=== PATIENT | female | born 1950 | race Caucasian/White ===

== ENCOUNTER 2019-07-14 16:18 | Inpatient (IN) | payer OTHER ==
[~2019-07-14] VITALS: Ht 160 cm; Wt 86.9 kg
[~2019-07-14 16:18] MED LIST: ACET500 PO; ACETAMINOPHEN PO; ALLER-TEC PO; AMLO5 PO; ASPI500 PO; Anti-Diarrheal2 MG PO; B-12500 MC1 SL; CALCAVITDA PO; CALCITRATE200 MG PO; Diovan40 MG PO; FAMO20 PO; FERR325 PO; FISH1000 PO; GINKO BILOBA; HAIR SKIN NAIL1 EACH PO; IRON150C PO; MOMENI; Multiple Vitam1 EAC1 PO; OMEPRAZOLE20 MG PO; PHENYLEPHRINE PO; PROBIOTIC1 EAC6 PO; Super B Comple1 EAC2 PO; TELM20 PO; VALS80 PO
--- NOTE | 2019-07-16 09:36 | NUR ---
History, Chart, Medications and Allergies reviewed before start of procedure. Lungs clear T/O to Auscultation. Patient confirms NPO status and agrees with scheduled surgery. Patient reports completing Chlorhexadine shower X2 prior to admission to hospital.
--- NOTE | 2019-07-16 15:31 | NUR ---
TRANSFER TO SURGICAL UNIT PT TO SURGICAL FLOOR FROM OR AT 1400 TODAY. PT A/OX4 WITH VSS ON RA. BULK DRESSING TO LEFT HIP C/D/I WITH POLAR PAC IN PLACE. HENRIQUE'S AND SCD'S IN PLACE. DENIES PAIN. TOLERATING REGULAR DIET. SPOUSE AT BEDSIDE AND CALL LIGHT WITHIN REACH.
--- NOTE | 2019-07-16 15:44 | NUR ---
PATIENT WORKING WITH THERAPY AT THIS TIME
--- NOTE | 2019-07-16 16:35 | NUR ---
SHIFT SUMMARY POD 0 S/P LEFT AUGUSTO. PT A&OX4 WITH VSS. DRESSING TO LEFT HIP C/D/I WITH POLAR PAC IN PLACE. ALSO HAS HENRIQUE'S AND SCD'S IN PLACE BLE. REPORTS PAIN WELL CONTROLLED WITH PO MEDICATION. WORKED WITH THERAPY THIS AFTERNOON, AMBULATED IN HALLWAY. TOLERATING RENAL/LACTOSE FREE DIET. DENIES ANY N/V. CURRENTLY IN CHAIR WITH BLE ELEVATED AND VISITING WITH SPOUSE. HAS CALL LIGHT WITHIN REACH.
[2019-07-17 04:34] LABS: BASOPHILS ABSOLUTE AUTO 0.02 K/mm3 (0.00-0.23); BASOPHILS PERCENT AUTO 0 % (0-2); EOSINOPHILS ABSOLUTE AUTO 0.04 K/mm3 (0.00-0.68); EOSINOPHILS PERCENT AUTO 0 % (0-6); Hematocrit 29.4 % (33.0-51.0); Hemoglobin 9.2 g/dL (11.5-16.0); IMMATURE GRAN ABSOLUTE AUTO 0.03 K/mm3 (0.00-0.10); IMMATURE GRAN PERCENT AUTO 0 % (0-1); LYMPHOCYTES ABSOLUTE AUTO 1.44 K/mm3 (0.84-5.20); LYMPHOCYTES PERCENT AUTO 16 % (21-46); MONOCYTES ABSOLUTE AUTO 0.85 K/mm3 (0.16-1.47); MONOCYTES PERCENT AUTO 9 % (4-13); Mean Corpuscular HGB Conc 31.3 g/dL (31.5-36.5); Mean Corpuscular Volume 105 fL (80-100); NEUTROPHILS PERCENT AUTO 74 % (41-73); Platelet Count 230 K/mm3 (150-400); RDW Coefficient Variation 12.8 % (11.7-14.2); RDW Standard Deviation 49.8 fL (35.1-46.3); Red Blood Cell Count 2.79 M/mm3 (3.80-5.20); White Blood Cell Count 9.18 K/mm3 (4.00-11.30)
[2019-07-17 04:51] LABS: Bun/Creatinine Ratio 20.5 (12.0-20.0); Calcium, Blood 8.7 mg/dL (8.5-10.1); Creatinine, Blood 1.61 mg/dL (0.40-1.00); Magnesium, Blood 1.2 mg/dL (1.6-2.4); Potassium, Blood 5.1 mmol/L (3.5-5.5)
--- NOTE | 2019-07-17 07:36 | NUR ---
PT AAOX4. VSS. post op day 1 L AUGUSTO. Aquacell D/C/i. Ambulating to bathroom with FWW and Standby assist. Pain managed with medications. CMS intact. Patient rested comfortably throughout the night.
[2019-07-17] MEDS ORDERED: AMOCLA875 PO (08:20)
[2019-07-17] MEDS ORDERED: Aspirin EC81 MG PO (08:21)
[2019-07-17] MEDS ORDERED: Oxycodone HCl5 M1 PO (08:22)
[2019-07-17] MEDS ORDERED: PROM25 PO (08:22)
--- NOTE | 2019-07-17 11:01 | NUR ---
DC'D HOME, DC INSTRUCTIONS GIVEN BY DEMAR GUAJARDORN
--- NOTE | 2019-07-17 11:03 | NUR ---
DISCHARGE SUMMARY PT D/C HOME TODAY WITH SPOUSE AT 1045 VIA WHEEL CHAIR. DISCHARGE INSTRUCTIONS, PERSONAL BELONGINGS, POLAR PAC, AND SCRIPT PROVIDED PRIOR TO D/C. DRESSING TO LEFT HIP C/D/I. CLEARED BY THERAPY THIS MORNING. ABLE TO TOLERATE REGULAR DIET AND PAIN MANAGED WITH PO MEDICATION. PT/SPOUSE VERBALIZED UNDERSTANDING OF DISCHARGE INSTRUCTIONS AND DECLINED ANY CONCERNS/QUESTIONS.
== END 2019-07-17 10:58 | disposition home or self-care (01) | DRG 470 ==
LOC: SURS 07-16 08:58 → PRE IP 07-16 10:30 → SURS 07-16 14:00
PROVIDERS: ADMIT Orthopaedic Surgery
PROC: 0SRB04A Replacement of Left Hip Joint with Ceramic on Polyethylene Synthetic Substitute, Uncemented, Open Approach (ICD-10-PCS; principal; 2019-07-16 10:30)
DX: M16.12 Unilateral primary osteoarthritis, left hip (principal); I12.9 Hypertensive chronic kidney disease with stage 1 through stage 4 chronic kidney disease, or unspecified chronic kidney disease; N18.9 Chronic kidney disease, unspecified; K21.9 Gastro-esophageal reflux disease without esophagitis; E66.9 Obesity, unspecified; Z88.2 Allergy status to sulfonamides; Z68.33 Body mass index [BMI] 33.0-33.9, adult
CPT/HCPCS: 36415; 72170; 80048; 83735; 85025; 88300; 97110; 97116; 97162; 97165; 97530; 97535; C1713; C1776; J0171; J0690; J0735; J1885; J2250; J2704; J2795; J3010; J3370; J3475; J7050; J7120

== ENCOUNTER → 2020-01-14 | Outpatient (CLI) | payer OTHER ==
[~2020-01-14] MED LIST changes: +AMOCLA875 PO; +Aspirin EC81 MG PO; +Oxycodone HCl5 M1 PO; +PROM25 PO
[2020-01-14 15:57] LABS: Very Low Density Lipoprot Chol 63 mg/dL (6-32)
[2020-01-14 15:59] LABS: Alanine Aminotransfer (ALT/SGP 17 U/L (12-78); Albumin/Globulin Ratio 1.4 (0.8-1.8); Alk Phos 89 U/L (50-136); Anion Gap 6 mmol/L (6-16); Aspartate Aminotrans (AST/SGOT 15 U/L (12-37); Bilirubin, Total 0.3 mg/dL (0.1-1.0); Blood Urea Nitrogen 41 mg/dL (8-24); Bun/Creatinine Ratio 28.5 (12.0-20.0); CHOL/HDL RATIO 5.3; CO2, Blood 21 mmol/L (21-32); Calcium, Blood 9.1 mg/dL (8.5-10.1); Chloride, Blood 115 mmol/L (98-108); Cholesterol 249 mg/dL (50-200); Creatinine, Blood 1.44 mg/dL (0.40-1.00); Globulin, Blood 2.9 g/dL (2.2-4.0); Glomerular Filtration Rate 38 (60-); Glucose, Blood 97 mg/dL (70-99); HDL Cholesterol 47 mg/dL (>39); Low Density Lipoprotein Chol 139 mg/dL (0-110); Potassium, Blood 5.5 mmol/L (3.5-5.5); Sodium, Blood 142 mmol/L (136-145); Total Protein, Blood 6.9 g/dL (6.4-8.2); Triglycerides 315 mg/dL (30-160)
== END | disposition home or self-care (01) ==
LOC: LAB 05:20 → LAB SHORT 05:20
PROVIDERS: Hospitalist
DX: E78.00 Pure hypercholesterolemia, unspecified (principal); I10 Essential (primary) hypertension
CPT/HCPCS: 80053; 80061

== ENCOUNTER 2021-03-01 10:54 | Day surgery (SDC) | payer OTHER ==
[~2021-03-01] VITALS: Ht 160 cm; Wt 86.8 kg
[~2021-03-01 10:54] MED LIST changes: +ROSU10TA PO; +SODBIC650 PO; +TELM40 PO
[2021-03-01] MEDS ORDERED: FAMO20 (11:22)
[2021-03-01] MEDS ORDERED: Vitamin B Comple1 EA (11:23)
[2021-03-01] MEDS ORDERED: CALCIUM 600 +1 EA11 (11:23)
[2021-03-01] MEDS ORDERED: C COMPLEX1000 M1 (11:23)
[2021-03-01] MEDS ORDERED: HAIR, SKIN AND1 EAC3 (11:24)
[2021-03-01] MEDS ORDERED: LOPE2C (11:24)
[2021-03-01] MEDS ORDERED: APHEN325 MG (11:24)
== END 2021-03-01 14:02 | disposition home or self-care (01) ==
LOC: ORSCSDS 10:54
PROVIDERS: Student in an Organized Health Care Education/Training Program
PROC: 0DB58ZX Excision of Esophagus, Via Natural or Artificial Opening Endoscopic, Diagnostic (ICD-10-PCS; principal; 2021-03-01 12:15)
PROC: 0DBK8ZX Excision of Ascending Colon, Via Natural or Artificial Opening Endoscopic, Diagnostic (ICD-10-PCS; principal; 2021-03-01 12:15)
PROC: 0DBE8ZX Excision of Large Intestine, Via Natural or Artificial Opening Endoscopic, Diagnostic (ICD-10-PCS; principal; 2021-03-01 12:15)
PROC: 0DB68ZX Excision of Stomach, Via Natural or Artificial Opening Endoscopic, Diagnostic (ICD-10-PCS; principal; 2021-03-01 12:15)
DX: R10.9 Unspecified abdominal pain (principal); D12.2 Benign neoplasm of ascending colon; K57.30 Diverticulosis of large intestine without perforation or abscess without bleeding; R19.7 Diarrhea, unspecified; K21.9 Gastro-esophageal reflux disease without esophagitis; K29.70 Gastritis, unspecified, without bleeding; I12.9 Hypertensive chronic kidney disease with stage 1 through stage 4 chronic kidney disease, or unspecified chronic kidney disease; N18.30 Chronic kidney disease, stage 3 unspecified; G51.0 Bell's palsy; Z79.899 Other long term (current) drug therapy
CPT/HCPCS: 88305; 88342; J2704; J7120

== ENCOUNTER → 2022-05-06 | Outpatient (CLI) | payer OTHER ==
[~2022-05-06] MED LIST changes: +APHEN325 MG; +C COMPLEX1000 M1; +CALCIUM 600 +1 EA11; +FAMO20; +HAIR, SKIN AND1 EAC3; +LOPE2C; +Vitamin B Comple1 EA
[2022-05-08 13:46] LABS: Adenovirus F 40/41 Not Detected (NOT DETECT); Astrovirus Not Detected (NOT DETECT); Campylobacter Sp Not Detected (NOT DETECT); Cryptosporidium Not Detected (NOT DETECT); Cyclospora Cayetanensis Not Detected (NOT DETECT); E. Coli O157 Not Detected (NOT DETECT); Entamoeba Histolytica Not Detected (NOT DETECT); Enteroaggregative E. coli-EAEC Not Detected (NOT DETECT); Enteropathogenic E. coli-EPEC Not Detected (NOT DETECT); Enterotoxigenic E. coli-ETEC Not Detected (NOT DETECT); Giardia Lamblia Not Detected (NOT DETECT); Norovirus GI/GII Not Detected (NOT DETECT); Plesiomonas Shigelloides Not Detected (NOT DETECT); Rotavirus A Not Detected (NOT DETECT); Salmonella Sp Not Detected (NOT DETECT); Sapovirus Not Detected (NOT DETECT); Shiga Toxin-prod E. coli-STEC Not Detected (NOT DETECT); Shigella/Enteroin E. coli-EIEC Not Detected (NOT DETECT); Vibrio Cholerae Not Detected (NOT DETECT); Vibrio Sp Not Detected (NOT DETECT); Yersinia Enterocolitica Not Detected (NOT DETECT)
== END | disposition home or self-care (01) ==
LOC: LAB SHORT 09:17
PROVIDERS: Hospitalist
DX: A09 Infectious gastroenteritis and colitis, unspecified (principal)
CPT/HCPCS: 87507

== ENCOUNTER → 2023-07-10 | Outpatient (CLI) | payer OTHER ==
[~2023-07-10] MED LIST changes: +AMLO5; +ROSU10TA; +TELM40
[2023-07-10 19:14] LABS: BASOPHILS ABSOLUTE AUTO 0.04 K/mm3 (0.00-0.23); BASOPHILS PERCENT AUTO 1 % (0-2); EOSINOPHILS ABSOLUTE AUTO 0.17 K/mm3 (0.00-0.68); EOSINOPHILS PERCENT AUTO 2 % (0-6); Hematocrit 34.2 % (33.0-51.0); Hemoglobin 10.6 g/dL (11.5-16.0); IMMATURE GRAN ABSOLUTE AUTO 0.02 K/mm3 (0.00-0.10); IMMATURE GRAN PERCENT AUTO 0 % (0-1); LYMPHOCYTES ABSOLUTE AUTO 1.92 K/mm3 (0.84-5.20); LYMPHOCYTES PERCENT AUTO 26 % (21-46); MONOCYTES ABSOLUTE AUTO 0.65 K/mm3 (0.16-1.47); MONOCYTES PERCENT AUTO 9 % (4-13); Mean Corpuscular HGB 31.8 pg (26.0-34.0); Mean Corpuscular Volume 103 fL (80-100); Mean Platelet Volume 10.1 fL (9.1-12.4); NEUTROPHILS ABSOLUTE AUTO 4.59 K/mm3 (1.96-9.15); NEUTROPHILS PERCENT AUTO 62 % (41-73); Platelet Count 362 K/mm3 (150-400); RDW Coefficient Variation 13.2 % (11.7-14.2); RDW Standard Deviation 50.8 fL (35.1-46.3); Red Blood Cell Count 3.33 M/mm3 (3.80-5.20); White Blood Cell Count 7.39 K/mm3 (4.00-11.30)
== END | disposition home or self-care (01) ==
LOC: LAB SHORT 18:00 → LAB 18:00
PROVIDERS: Hospitalist
DX: D75.839 Thrombocytosis, unspecified (principal)
CPT/HCPCS: 85025

== ENCOUNTER → 2025-06-30 | Outpatient (CLI) | payer OTHER ==
[2025-06-30 16:16] LABS: CHOL/HDL RATIO 2.4; Cholesterol 134 mg/dL (50-200); HDL Cholesterol 56 mg/dL (>39); LDL/HDL RATIO 0.8; Low Density Lipoprotein Chol 47 mg/dL (0-110); Triglycerides 155 mg/dL (30-160); Very Low Density Lipoprot Chol 31 mg/dL (6-32)
== END ==
LOC: LAB SHORT 12:30 → LAB 12:30
PROVIDERS: Hospitalist
DX: E78.00 Pure hypercholesterolemia, unspecified (principal); R73.01 Impaired fasting glucose
CPT/HCPCS: 80061; 83036